=== PATIENT | female | born 1940 | race Caucasian/White ===

== ENCOUNTER → 2017-06-02 | Outpatient (CLI) | payer OTHER | LOC: NUC 09:12 | DX: M85.80 Other specified disorders of bone density and structure, unspecified site (principal); Z78.0 Asymptomatic menopausal state ==

== ENCOUNTER → 2017-08-10 | Outpatient (CLI) | payer OTHER | LOC: RAD 03:36 | DX: Z12.31 Encounter for screening mammogram for malignant neoplasm of breast (principal) ==

== ENCOUNTER → 2018-08-15 | Outpatient (CLI) | payer OTHER | LOC: RAD 02:04 | DX: Z12.31 Encounter for screening mammogram for malignant neoplasm of breast (principal) ==

== ENCOUNTER → 2019-08-19 | Outpatient (CLI) | payer OTHER | LOC: BC 09:13 | DX: Z12.31 Encounter for screening mammogram for malignant neoplasm of breast (principal) ==

== ENCOUNTER → 2020-02-19 | Outpatient (CLI) | payer OTHER | LOC: SJCVC 09:40 | PROVIDERS: ATTEND Internal Medicine Cardiovascular Disease | DX: R94.31 Abnormal electrocardiogram [ECG] [EKG] (principal); R53.83 Other fatigue; I25.10 Atherosclerotic heart disease of native coronary artery without angina pectoris; I10 Essential (primary) hypertension; E78.00 Pure hypercholesterolemia, unspecified; R25.1 Tremor, unspecified; Z79.899 Other long term (current) drug therapy; Z82.49 Family history of ischemic heart disease and other diseases of the circulatory system ==

== ENCOUNTER → 2020-02-26 | Outpatient (CLI) | payer OTHER | LOC: SJCVCIMAG 11:49 | PROVIDERS: ATTEND Internal Medicine Cardiovascular Disease | DX: I25.10 Atherosclerotic heart disease of native coronary artery without angina pectoris (principal); R53.83 Other fatigue; I73.9 Peripheral vascular disease, unspecified; E66.9 Obesity, unspecified; Z79.899 Other long term (current) drug therapy ==

== ENCOUNTER → 2020-08-20 | Outpatient (CLI) | payer OTHER | LOC: RAD 06:53 | DX: Z12.31 Encounter for screening mammogram for malignant neoplasm of breast (principal) ==

== ENCOUNTER → 2021-05-26 | Outpatient (CLI) | payer OTHER | LOC: SJCVCIMAG 14:16 | PROVIDERS: ATTEND Internal Medicine Cardiovascular Disease | DX: I08.3 Combined rheumatic disorders of mitral, aortic and tricuspid valves (principal); R94.31 Abnormal electrocardiogram [ECG] [EKG]; I25.10 Atherosclerotic heart disease of native coronary artery without angina pectoris; R06.02 Shortness of breath; E78.00 Pure hypercholesterolemia, unspecified; I10 Essential (primary) hypertension; G47.33 Obstructive sleep apnea (adult) (pediatric); Z79.899 Other long term (current) drug therapy; Z72.89 Other problems related to lifestyle; Z88.1 Allergy status to other antibiotic agents; Z88.8 Allergy status to other drugs, medicaments and biological substances ==

== ENCOUNTER → 2021-05-27 | Outpatient (CLI) | payer OTHER | LOC: CAT 09:09 | PROVIDERS: ATTEND Internal Medicine Cardiovascular Disease | DX: E04.1 Nontoxic single thyroid nodule (principal); R06.02 Shortness of breath; R07.9 Chest pain, unspecified ==

== ENCOUNTER → 2021-06-21 | Outpatient (CLI) | payer OTHER ==
[~2021-06-21] MED LIST: INDERAL80 MG PO; KEFLEX250 MG PO; LEVOTHYROXINE25 MCG PO; OLMESARTAN-HCT1 EAC1 PO; PREDNISONE 20 M20 MG PO; VITAMIN D325 MC3 PO; VITAMIN E400 UNIT PO; ZALEPLON 10 MG10 M1 PO
== END ==
LOC: CAT 10:08
PROVIDERS: ATTEND Internal Medicine
DX: J98.4 Other disorders of lung (principal); R91.1 Solitary pulmonary nodule

== ENCOUNTER 2021-06-24 06:03 | Observation (INO) | payer OTHER ==
[~2021-06-24] VITALS: Ht 167.6 cm; Wt 91.6 kg
[~2021-06-24 06:03] MED LIST changes: -KEFLEX250 MG PO
[2021-06-24 06:50] VITALS: BP 140/60
[2021-06-24 14:30] LABS: CALCIUM 8.5 mg/dL (8.5-10.1); CREATININE 0.9 mg/dL (0.6-1.0); POTASSIUM 3.9 mmol/L (3.5-5.1)
[2021-06-24 15:14] LABS: TOTAL VOLUME 20 mL
[2021-06-24 15:15] LABS: CLARITY HAZY; COLOR LIGHT PINK
[2021-06-24 15:43] VITALS: BP 160/70
[2021-06-24 16:34] LABS: BF NUCLEATED CELLS 141 /mm3; BF RBC 5108 /mm3
[2021-06-24 16:36] LABS: BF MACROPHAGE 28 %; BF NEUTROPHILS 5 %; SOURCE BRONCHIAL
--- NOTE | 2021-06-24 18:33 | NUR ---
PATIENT IS TRANSFERRED FROM IR TO THE . PATIENT IS ALERT AND ORIENTED X4. SHE HAS A PLESANT DISPOSITION. SHE IS OF APPROPRIATE COLOR FOR HER ETHNICITY. MARIO HAS A PNEUMOTHORAX POST BIOPSY SHE HAS A CHEST TUBE IN PLACE. THE DRESSING AROUND THE CHEST TUBE IS CLEAN, DRY, AND INTACT. DRAINAGE COMING THRU THE CHEST TUBE LINE IS SEROSANGUNIOUS AND THE LINE IS PATENT. PATIENT REPORTS HAVING PAIN AND IS GIVEN MEDICATIONS PER AVALIABLE ORDERS. PATIENT IS CURRENTLY ON 2L OF OXYGEN AT 98- 99%. PATIENT REPORTS THAT SHE DOES NOT USE OXYGEN AT HOME. PATIENT HAS NO SKIN ISSUES TO REPORT. PATIENT HAS AN IV IN HER RIGHT HAND. IV LINE IS PATENT. PATIENT IS ON BED REST AT THIS TIME DUE TO CHEST TUBE BEING IN PLACE. PATIENT IS BLADDER SCANNED AND FOUND TO HAVE 600ML OF FLUID IN HER BLADDER. SHE WAS OFFERED THE BED RAM AND ONLY HAD 200ML'S OF OUT PUT. PATIENT PER PROVIDER IS STRAIGHT CATHED TO REMOVE THE REMAINING FLUID FROM HER BLADDER. PATIENT HAS NO FURTHER MEDICAL CONCERNS OR COMPLAINTS AT THIS TIME. PATIENT WILL CONTINUE TO BE MONITORED.
--- NOTE | 2021-06-24 19:24 | NUR ---
1730 PT STATED SHE HASNT VOIDED THE WHOLE DAY, MOSTLY BCOS SHE HASNT HAD ANYTHING TO DRINK. BLADDER SCAN PT AND HAD 662. PT VOIDED ABOUT 220ML. DR. BARFIELD MADE AWARE, GAVE ORDERS FOR STRIAGHT CATH. POST STRAIGHT CATH VOID, PT HAD 10ML.
[2021-06-24 19:34] VITALS: BP 144/55
[2021-06-24 23:19] VITALS: BP 127/51
--- NOTE | 2021-06-25 02:34 | NUR ---
BLADDER SCAN PERFORMED WITH 386ML NOTED ON SCAN. PT STATED TO RN THAT SHE DOES NOT DRINK MUCH AND USUALLY ONLY VOIDS "ONCE OR TWICE A DAY, USUALLY FIRST THING IN THE MORNING." PT FEELS NO URGE TO VOID AND PREFERS NOT TO HAVE STRAIGHT CATH PERFORMED AT THIS TIME. PT AGREEABLE TO PERFORM BLADDER SCAN AGAIN AROUND 0600, ATTEMPT TO VOID, AND PERFORM STRAIGHT CATH AT THAT TIME IF APPLICABLE.
[2021-06-25 04:24] VITALS: BP 137/66
[2021-06-25 06:09] LABS: ABSOLUTE NEUTROPHILS 7.4 thou/uL (1.4-8.2); BASOPHILS 0.1 % (0.0-2.0); HEMATOCRIT 34.2 % (37.0-47.0); HEMOGLOBIN 11.6 gm/dL (12.0-15.0); MCHC 33.9 g/dL (28.0-37.0); MCV 91.6 fL (80.0-100.0); MONOCYTES 4.2 % (1.0-8.0); PLATELET COUNT 181 thou/uL (150-400); POLYS 89.7 % (36.0-66.0); RBC 3.73 mil/uL (4.20-5.00); RDW 14.3 % (10.5-14.5); WBC 8.3 thou/uL (4.0-11.0)
[2021-06-25 06:58] LABS: CALCIUM 8.4 mg/dL (8.5-10.1); CREATININE 0.9 mg/dL (0.6-1.0); MAGNESIUM 2.3 mg/dL (1.8-2.4); PHOSPHORUS 3.8 mg/dL (2.5-4.9); POTASSIUM 4.3 mmol/L (3.5-5.1)
[2021-06-25 07:31] VITALS: BP 126/49
--- NOTE | 2021-06-25 07:37 | NUR ---
PT A&OX4, PLEASANT AND COOPERATIVE. PT WITH PNEUMOTHORAX POST BRONCHOSCOPY/BIOPSY WITH SUBSEQUENT CHEST TUBE PLACEMENT. CHEST TUBE SET TO -20CM SUCTION, DRESSING HAS REMAINED C/D/I THROUGHOUT SHIFT WITH MINIMAL OUTPUT, <10CC. PT C/O PAIN WITH MOVEMENT AND WITH DEEP BREATHING. I.S. PROVIDED WELL EDUCTION ON GOALS OF USE. BLADDER SCAN AT 0600 REVEALED >764CC. POST VOID RESIDUAL WAS 600. STRAIGHT CATH PERFORMED PER STANDING ORDER WITH 625CC OUT, SPECIMEN SENT TO LAB FOR URINALYSIS.
[2021-06-25 07:48] LABS: URINE BILIRUBIN NEGATIVE (Negative); URINE BLOOD NEGATIVE (Negative); URINE CLARITY CLEAR; URINE COLOR YELLOW; URINE GLUCOSE-RANDOM* 3+ (Negative); URINE KETONES NEGATIVE (Negative); URINE LEUKOCYTES-REFLEX NEGATIVE (Negative); URINE PROTEIN (DIPSTICK) NEGATIVE (Negative); URINE UROBILINOGEN 0.2 E.U./dl (0.2-1.0)
[2021-06-25 07:49] LABS: URINE NITRITE-REFLEX POSITIVE (Negative)
[2021-06-25 07:52] VITALS: BP 130/59
[2021-06-25 08:03] LABS: CASTS None Seen /LPF (None Seen); MUCUS 4-6 Moderate strn/LPF (None Seen); SQUAMOUS 0-3 Few /LPF (0-3); URINE RBC 1-2 Rare /HPF (NONE SEEN); URINE WBC-REFLEX 0-5 Rare /HPF (0-5)
[2021-06-25 08:04] LABS: AMORPHOUS URATES Few /LPF (None Seen); BACTERIA-REFLEX >30 Many /HPF (None Seen); WBC CLUMPS Occasional (None Seen)
--- NOTE | 2021-06-25 13:59 | NUR ---
INITIAL ASSESSMENT: Received consult. SW reviewed chart and spoke with nursing and attending physician. Pt was admitted from home following pneumothorax following lung bx. Chest tube placed. Pt may be ready for discharge home later today pending chest xray results and pulmonology clearance. SW met with pt and spouse at bedside. Introduced role of SW. Pt is alert/orientated x 4. Pt and spouse live at home. Prior to admission, pt was independent with ADLs. No use of DME. No hx of services or post-acute placement. Pt's PCP is Dr. Jeremiah Greco at [facility]. Plan is for pt to discharge home when medically stable. No SW discharge needs at this time. SW is available to assist should needs arise.
--- NOTE | 2021-06-25 14:07 | PATH ---
[facility] [address] [place] [address] PATHOLOGY RPT PROCEDURE Name: MICHELLE SIMSYCDebbie MCKINNON Room #: 360-P [facility] Tresa Cintron#: [id number] Admission: 06/24/21 Date of : 38 Discharge: Report #: [id number] Path Case #: [id number] [facility] Accession Number: [id number] . 01 Material submitted: . lung - RUL TISSUE SAMPLE [facility]. Modifiers: right, upper, LOBE . 01 Clinical history: . BRONCHOSCOPY RESP/BRONCH BRUSH . 02 Diagnosis: Right upper lobe, endobronchial tissue: - Fragment of scant endobronchial tissue and hemorrhage. - Negative for atypia, dysplasia or malignancy. LBQ 06/25/2021 1156 Local . 02 Comment: This case has been co-reviewed with Dr. Morrison on 06/25/2021 who agrees with the diagnosis. ([place]/jaspal; 06/25/2021) . 02 Electronically signed: . Jennifer Merrill MD, Pathologist NPI- [id number] . 01 Gross description: . The specimen is received in formalin, labeled "Elidia Sims RUL forceps", however the requisition designates the specimen as "resp/bronch brush" and "RUL tissue sample via forceps". The specimen consists of multiple aguirre-brown hemorrhagic soft irregular tissues aggregating 0.6 x 0.4 x 0.1 cm which are filtered and submitted in toto in A1. ([place]; 06/24/2021) DKA/DKA 06/24/2021 1520 Local . 02 Pathologist provided ICD-10: R91.8 . 02 CPT . 248083 Specimen Comment: A courtesy copy of this report has been sent to [phone] Specimen Comment: Report sent to Performed at: [address], [place], [place] [id number] MD Rolly Vuong MD Phone: [phone] Performed at: [address] [address] PATHOLOGY RPT PROCEDURE Name: ELIDIA SIMS Room #: 360-P [facility] Tresa Cintron#: [id number] Admission: 06/24/21 Date of : 38 Discharge: Report #: [id number] Path Case #: [id number] [facility] [id number] MD Tiffany Morrison MD Phone: [phone]
[2021-06-25] MEDS ORDERED: KEFLEX250 MG PO (14:25)
[2021-06-25 16:00] VITALS: BP 136/70
--- NOTE | 2021-06-25 18:45 | NUR ---
RN ASSUMED PT'S CARE AT 0700AM, PT IS A&OX4 , PT IS OFF O2 AND SHE IS ON ROOM AIR , PT'S BS AND O2SAT ARE STABLE, PT'S R CHEST TUBE IS ON WATER SEAL , 25ML DRAINAGE BY THIS TIME, PT CAN TOLERATE HER R CHEST PAIN, NO PAIN MEDICATION NEEDS,
[2021-06-25 19:39] VITALS: BP 125/64
[2021-06-26 04:38] VITALS: BP 131/56
--- NOTE | 2021-06-26 06:24 | NUR ---
PT ALERT & ORIENTED X 4. PT IS CURRENTLY ON RA AND O2 SATS ARE STABLE AT 94%. PT'S RIGHT CHEST TUBE IN PLACE AND ON WATER SEAL, 10ML OUTPUT OVERNIGHT. NO COMPLAINTS OF PAIN. VSS. WILL CONTINUE TO MONITOR.
[2021-06-26 07:28] VITALS: BP 140/67
[2021-06-26] MEDS ORDERED: NYSTATIN100000 UNI SW&SWALLOW (15:02)
[2021-06-26] MEDS ORDERED: CLOTRIMAZOLE 1%15 G1 TOP (15:02)
[2021-06-26 15:22] VITALS: BP 127/64
[2021-06-26 15:58] VITALS: BP 127/64
--- NOTE | 2021-06-26 16:07 | NUR ---
RN ASSUMED PT'S CARE AT 0700AM, PT IS A&OX4, PT IS ON ROOM AIR, PT'S VS ARE STABLE, PT 'S R SIND CHEST TUBE REMOVED BY DR MCCABE AT 1400PM, PT DENIES SOB AND PAIN BY THIS TIME, PT HAS IV ABX TODAY, RN RECEIVED ORDER TO DC PT TO HOME, PT AND PT'S UNDERSTAND DC TEACHING WELL .
--- NOTE | 2021-06-26 16:37 | NUR ---
PT'S MANAGER UNDERWRITING PT TO HOME AT 1630PM, THEY ARE HAPPLY WITH PT'S CARE AT 3W.
[2021-06-27 07:08] LABS: GLYCOHEMOGLOBIN (HGB A1C) 7.3 % (4.8-5.6)
--- NOTE | 2021-07-01 10:27 | PATH ---
[facility] [address] [place] [address] PATHOLOGY RPT PROCEDURE Name: TERRENCE CUNHA Room #: 360-P [facility] Cintron#: [id number] Admission: 06/24/21 Date of : 38 Discharge: 06/26/21 Report #: [id number] Path Case #: [id number] Note [facility] Accession Number: [id number] TESTS RESULT FLAG UNITS REF RANGE LAB Clinician Provided Cytology Information No. of containers..01 Other (Miscellaneous) Source: RUL BRUSHING SLIDE DIAGNOSIS: 02 RUL BRUSHING SLIDE NEGATIVE FOR MALIGNANT CELLS. NORMAL BRONCHIAL CELLS ARE PRESENT. Signed out by: 02 Jamar Rahman MD, Pathologist NPI- [id number] Performed by: 01 Yoana Vasquez Pega Developer (ASCP) FLAG LEGEND: L-Low Normal,H-High Normal,LL-Alert Low,HH-Alert High <-Panic Low,>-Panic High,A-Abnormal,AA-Critical Abnormal Performed at: [address] [place] [address] Rolly Vuong MD, [address] [place] [id number] Jamar Rahman MD, Specimen Comment: A duplicate report has been generated due to demographic updates. Performed at: [address] [id number] MD Rolly Vuong MD Phone: [phone]
== END 2021-06-26 16:42 | disposition home or self-care (01) ==
LOC: OR → PUL 06:03 → OR 10:12 → EDSTATUS 11:17 → PUL 11:18 → 3W 15:39
PROVIDERS: Pediatrics; Physician Assistant; ADMIT Internal Medicine; ATTEND Internal Medicine
DX: J93.9 Pneumothorax, unspecified (principal); J98.4 Other disorders of lung; Z20.822 Contact with and (suspected) exposure to COVID-19; I10 Essential (primary) hypertension; E03.9 Hypothyroidism, unspecified; J67.8 Hypersensitivity pneumonitis due to other organic dusts; G47.33 Obstructive sleep apnea (adult) (pediatric); Z79.899 Other long term (current) drug therapy
CPT/HCPCS: 50010; 62110; 62900; 70005

== ENCOUNTER → 2021-07-14 | Outpatient (CLI) | payer OTHER ==
[~2021-07-14] MED LIST changes: +CLOTRIMAZOLE 1%15 G1 TOP; +KEFLEX250 MG PO; +NYSTATIN100000 UNI SW&SWALLOW
== END ==
LOC: SJCVCIMAG 10:01
PROVIDERS: ATTEND Nuclear Medicine Nuclear Cardiology
DX: K55.1 Chronic vascular disorders of intestine (principal); I10 Essential (primary) hypertension

== ENCOUNTER → 2021-07-21 | Outpatient (CLI) | payer OTHER | LOC: SJCVC 14:37 | PROVIDERS: ATTEND Internal Medicine Cardiovascular Disease | DX: R94.31 Abnormal electrocardiogram [ECG] [EKG] (principal); I45.19 Other right bundle-branch block; I25.10 Atherosclerotic heart disease of native coronary artery without angina pectoris; K55.1 Chronic vascular disorders of intestine; I10 Essential (primary) hypertension; E78.00 Pure hypercholesterolemia, unspecified; R53.83 Other fatigue; K57.30 Diverticulosis of large intestine without perforation or abscess without bleeding; G47.33 Obstructive sleep apnea (adult) (pediatric); I73.9 Peripheral vascular disease, unspecified; Z82.49 Family history of ischemic heart disease and other diseases of the circulatory system; Z72.89 Other problems related to lifestyle; Z88.8 Allergy status to other drugs, medicaments and biological substances; Z79.899 Other long term (current) drug therapy ==

== ENCOUNTER 2021-07-27 10:10 | Outpatient (CLI) | payer OTHER ==
[2021-07-27] VITALS (9 sets, daily range): BP systolic 104–152; BP diastolic 52–88
[~2021-07-27] VITALS: Ht 167.6 cm; Wt 88.0 kg
[2021-07-27] MEDS ORDERED: CRESTOR5 MG PO (11:17)
[2021-07-27] MEDS ORDERED: BYSTOLIC10 MG PO (11:17)
[2021-07-27] MEDS ORDERED: PLAVIX 75 MG TA75 MG PO (16:16)
[2021-07-27] MEDS ORDERED: ASPIRIN EC81 M1 PO (16:16)
--- NOTE | 2021-07-27 18:26 | NUR ---
PT ARRIVED FROM [facility]OR[facility] SPECIAL[facility] AT APPROXIMATELY 1630 FOR OBSERVATION. RESEARCH LABORATORY SPECIALIST STATED PT IS TO STAY BEDREST FOR 3 HOURS THEN PATIENT CAN GET UP AND WALK. IF PATIENT DOES NOT HAVE ANY CONCERNS THEN PATIENT CAN BE DISCHARGED. VITALS REMAINED STABLE AND GROIN SITE IS C/D/I. PATIENT DENIES ANY COMPLAINTS.
--- NOTE | 2021-07-27 19:39 | NUR ---
DISCHARGED PATIENT. EXPLAINED DISCHARGE INSTRUTIONS TO PATIENT AND SPOUSE. HIGHLIGHTED UPCOMING APPOINMENTS AND MEDICATIONS TO PATIENT. SHE STATED SHE UNDERSTOOD AND DID NOT HAVE ANY FURTHER QUESTIONS.
== END 2021-07-27 19:45 | disposition home or self-care (01) ==
LOC: CATH 10:10 → 2N 17:06 → CATH 19:45
PROVIDERS: ATTEND Nuclear Medicine Nuclear Cardiology
DX: K55.059 Acute (reversible) ischemia of intestine, part and extent unspecified (principal); K55.1 Chronic vascular disorders of intestine; I15.0 Renovascular hypertension; I70.1 Atherosclerosis of renal artery; I73.9 Peripheral vascular disease, unspecified; R10.9 Unspecified abdominal pain; M79.604 Pain in right leg; M79.605 Pain in left leg; I10 Essential (primary) hypertension; E03.9 Hypothyroidism, unspecified; E11.9 Type 2 diabetes mellitus without complications; G47.33 Obstructive sleep apnea (adult) (pediatric); F32.9 Major depressive disorder, single episode, unspecified; Z98.890 Other specified postprocedural states; Z79.899 Other long term (current) drug therapy; Z90.710 Acquired absence of both cervix and uterus
CPT/HCPCS: 10797

== ENCOUNTER → 2021-08-09 | Outpatient (CLI) | payer OTHER ==
[~2021-08-09] MED LIST changes: +ASPIRIN EC81 M1 PO; +BYSTOLIC10 MG PO; +CRESTOR5 MG PO; +PLAVIX 75 MG TA75 MG PO
[2021-08-09 12:39] LABS: ABSOLUTE NEUTROPHILS 4.1 thou/uL (1.4-8.2); BASOPHILS 0.8 % (0.0-2.0); EOSINOPHILS 3.2 % (0.0-3.0); HEMATOCRIT 34.9 % (37.0-47.0); HEMOGLOBIN 11.7 gm/dL (12.0-15.0); LYMPHOCYTES 21.4 % (24.0-44.0); MCHC 33.4 g/dL (28.0-37.0); MCV 92.8 fL (80.0-100.0); MONOCYTES 11.9 % (1.0-8.0); PLATELET COUNT 211 thou/uL (150-400); POLYS 62.7 % (36.0-66.0); RBC 3.77 mil/uL (4.20-5.00); RDW 15.1 % (10.5-14.5); WBC 6.6 thou/uL (4.0-11.0)
[2021-08-09 12:57] LABS: INR 0.96; PROTIME 10.5 Seconds (10.5-12.1)
== END ==
LOC: RAD 09:46 → ULTRA 09:48
PROVIDERS: ATTEND Internal Medicine
DX: T14.8XXA Other injury of unspecified body region, initial encounter (principal); J84.9 Interstitial pulmonary disease, unspecified; J67.9 Hypersensitivity pneumonitis due to unspecified organic dust; M79.89 Other specified soft tissue disorders; M71.22 Synovial cyst of popliteal space [Baker], left knee; X58.XXXA Exposure to other specified factors, initial encounter; Y92.89 Other specified places as the place of occurrence of the external cause; Y93.89 Activity, other specified; Y99.8 Other external cause status

== ENCOUNTER → 2021-08-18 | Outpatient (CLI) | payer OTHER | LOC: BC 12:35 | DX: Z12.31 Encounter for screening mammogram for malignant neoplasm of breast (principal); N64.89 Other specified disorders of breast ==